=== PATIENT | male | born 1945 | race Caucasian/White ===

== ENCOUNTER 2020-07-21 03:16 | Emergency (ER) | payer MEDICARE ==
[~2020-07-21] VITALS: Ht 177.8 cm; Wt 125.5 kg
[~2020-07-21 03:16] MED LIST: ALBU8HFA PO; NOR5T PO; PRED20TA PO
[2020-07-21 03:44] LABS: BASOPHILS # (AUTO) 0.1 X10'3 (0-0.2); BASOPHILS % (AUTO) 1.5 % (0-1); EOSINOPHILS # (AUTO) 0.1 X10'3 (0-0.9); EOSINOPHILS % (AUTO) 0.8 % (0-6); HEMATOCRIT 50.2 % (42.0-52.0); HEMOGLOBIN 16.8 g/dl (14.0-17.9); LYMPHOCYTES % (AUTO) 11.5 % (21-51); MEAN CORPUSCULAR HEMOGLOBIN 28.8 PG (27.0-31.0); MEAN CORPUSCULAR HGB CONC 33.4 g/dL (33.0-36.5); MEAN CORPUSCULAR VOLUME 86.3 FL (78-98); MEAN PLATELET VOLUME 9.4 FL (7.4-10.4); MONOCYTES # (AUTO) 1.3 X10'3 (0-0.9); MONOCYTES % (AUTO) 15.2 % (2-12); PLATELET COUNT 90 X10'3 (140-440); RED BLOOD COUNT 5.81 X10'6 (4.70-6.10); RED CELL DISTRIBUTION WIDTH 15.6 % (11.5-14.5); WHITE BLOOD COUNT 8.4 X10'3 (4.5-11.0)
[2020-07-21 03:55] LABS: PARTIAL THROMBOPLASTIN TIME 31 SECONDS (22-32)
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
[2020-07-21 03:59] LABS: ALANINE AMINOTRANSFERASE 25 U/L (12-78); ALBUMIN 3.9 G/DL (3.4-5.0); ALBUMIN/GLOBULIN RATIO 1.1 (1.1-1.5); ALKALINE PHOSPHATASE 67 IU/L (46-116); ANION GAP 4 (8-16); ASPARTATE AMINO TRANSFERASE 18 U/L (10-37); BILIRUBIN,TOTAL 1.2 MG/DL (0.1-1.0); BLOOD UREA NITROGEN 10 MG/DL (7-18); BUN/CREATININE RATIO 10.3 (5.4-32.0); CALCIUM 8.2 MG/DL (8.5-10.1); CHLORIDE 104 MMOL/L (99-107); CREATININE 0.97 MG/DL (0.60-1.10); GLUCOSE 100 MG/DL (70-104); POTASSIUM 3.8 MMOL/L (3.5-5.1); SODIUM 139 MMOL/L (135-145); TOTAL CARBON DIOXIDE 31.2 MMOL/L (24-32); TOTAL PROTEIN 7.5 G/DL (6.4-8.2); eGFR 76 ML/MIN
[2020-07-21 04:02] LABS: TROPONIN I < 0.04 NG/ML (0.0-0.05)
[2020-07-21] MEDS ORDERED: iohexol 350MG/ML 100ml bottle IV ONE (04:29)
[2020-07-21] MEDS ORDERED: METO-467 PO (04:47)
[2020-07-21] MEDS ORDERED: aspirin 81mg tab.chew PO ONE (05:00)
[2020-07-21] MEDS ORDERED: atorvastatin 20mg tablet PO SCH (05:15)
[2020-07-21] MEDS ORDERED: ASPI-1265 PO (05:20)
[2020-07-21] MEDS ORDERED: ATOR80TA PO (05:20)
[2020-07-21 05:37] LABS: CHOL/HDL RATIO 2.1 (0.00-4.99); CHOLESTEROL 88 MG/DL (0-200); HDL CHOLESTEROL 42 MG/DL (35-60); LDL CHOLESTEROL 30 MG/DL (50-100); TRIGLYCERIDES 107 MG/DL (20-135)
[2020-07-21 05:38] LABS: HEMOGLOBIN A1C 5.3 % (4.5-6.2)
--- NOTE | 2020-07-21 06:07 | NUR ---
pt seen walking/wandering in hallways around by ambulance bay doors. pt redirectly by staff calmly to his room. explained to pt that we request he stay in his room unless going to the bathroom. pt reply was "swell."
[2020-07-21 06:50] VITALS: BP 162/81
--- NOTE | 2020-07-21 08:27 | NUR ---
MRI SCREENING FORM FAXED TO MRI.
--- NOTE | 2020-07-21 08:50 | NUR ---
Pt was in MRI, stated to cert pharmacy tech "feels like I'm in a brith canal", and that he "wanted out". Refused to re-attempt MRI, medications offered and pt still refused.
--- NOTE | 2020-07-21 09:00 | NUR ---
Spoke to MD, both him and myself told by pt he is not willing to stay in hospital and wishes to leave AMA.
--- NOTE | 2020-07-21 09:27 | NUR ---
MD at bedside, explains risks of leaving against medical advice. Pt still wishes to do so at this time.
== END 2020-07-21 09:42 | disposition left against medical advice (07) ==
LOC: ER 03:17
DX: G45.9 Transient cerebral ischemic attack, unspecified (principal); R13.10 Dysphagia, unspecified; I10 Essential (primary) hypertension; J44.9 Chronic obstructive pulmonary disease, unspecified; F17.200 Nicotine dependence, unspecified, uncomplicated; Z72.89 Other problems related to lifestyle; Z79.899 Other long term (current) drug therapy
CPT/HCPCS: 36415; 70450; 70496; 70498; 71045; 80053; 80061; 82948; 83036; 84484; 85025; 85610; 85730; 93005; 93306; 99285; Q9967

== ENCOUNTER 2024-09-25 21:02 | Emergency (ER) | payer MEDICARE ==
[~2024-09-25] VITALS: Ht 180.3 cm; Wt 110.0 kg
[~2024-09-25 21:02] MED LIST changes: +METO-467 PO; -PRED20TA PO
[2024-09-25 21:07] VITALS: BP 113/65; PULSE 108; RESP 18; O2SAT 95
[2024-09-25 21:38] VITALS: TEMP 98.3
== END 2024-09-25 21:40 ==
LOC: ER 21:03
DX: F03.90 Unspecified dementia, unspecified severity, without behavioral disturbance, psychotic disturbance, mood disturbance, and anxiety (principal); F10.21 Alcohol dependence, in remission; I10 Essential (primary) hypertension; J44.9 Chronic obstructive pulmonary disease, unspecified; Z79.899 Other long term (current) drug therapy
CPT/HCPCS: 99281